=== PATIENT | female | born 1960 | race Caucasian/White ===

== ENCOUNTER → 2016-11-18 | Outpatient (CLI) | payer MEDICARE, MEDICAID ==
[~2016-11-18] MED LIST: ADVAIR 250/501 EA INH; AMLODIPINE BESY1 TAB PO; APAP/OXYCODONE1 TA2 PO; BENTYL10 MG PO; CYMBALTA60 MG PO; DAYPRO600 M1 PO; EPIPEN1 MG/ML MR; FLEXERIL10 MG PO; FLUVOXAMINE MA100 MG PO; FUROSEMIDE20 M1 PO; GABAPENTIN400 MG PO; HYDROCHLOROTHIA25 MG PO; IBUPROFEN800 MG PO; MEDROL DOSEPAK4 MG PO; MELOXICAM15 MG PO; MIRALAX POWDER17 G1 PO; MIRALAX POWDER255 G1 PO; MIXED AMPHETAMI25 MG PO; MS CONTIN30 MG PO; NEURONTIN300 MG PO; NORFLEX100 MG PO; NORVASC5 MG PO; NUCYNTA ER100 M1 PO; OXYCONTIN10 MG PO; PERCOCET 325 MG1 TA2 PO; PERCOCET 325 MG1 TA7 PO; PERCOCET PO; PREDNICOT20 MG PO; PROAIR HFA8.5 GM INH; REMERON15 MG PO; STRATTERA10 MG PO; TRAZADONE HYDR100 MG PO; ZOCOR20 MG PO; ZOFRAN ODT4 MG SL
[2016-11-18 14:46] LABS: BASO % 0.3 % (0.0-1.0); EOS # 0.1 10*3/uL (0.0-0.4); EOS % 0.9 % (1.0-4.0); HEMATOCRIT 37.5 % (37.0-47.0); HEMOGLOBIN 12.5 g/dl (12.0-16.0); IG # 0.1 10*3/uL (0.0-0.1); LYMPH % 17.1 % (27.0-41.0); MEAN CELL VOLUME 93.3 fl (81.0-99.0); MEAN CORPUSCULAR HGB 31.1 pg (27.0-31.0); MEAN CORPUSCULAR HGB CONC 33.3 g/dl (33.0-37.0); MEAN PLATELET VOLUME 9.5 fl (9.6-12.3); MONO # 0.8 10*3/uL (0.1-1.0); MONO % 6.7 % (3.0-9.0); NEUT # 8.8 10*3/uL (2.3-7.9); NEUT % 74.6 % (47.0-73.0); PLATELET COUNT AUTOMATED 272 10*3/uL (130-400); RED BLOOD COUNT 4.02 10*6/uL (4.10-5.10); RED CELL DISTRI WIDTH 14.5 % (0-14.5); WHITE BLOOD COUNT 11.8 10*3/uL (4.8-10.8)
[2016-11-18 14:49] LABS: BILIRUBIN NEGATIVE (NEGATIVE); BLOOD NEGATIVE (NEGATIVE); CLARITY CLEAR (CLEAR); COLOR YELLOW (YELLOW); GLUCOSE NEGATIVE (NEGATIVE); KETONE NEGATIVE (NEGATIVE); LEUKO ESTERASE NEGATIVE (NEGATIVE); NITRITE NEGATIVE (NEGATIVE); PROTEIN NEGATIVE (NEGATIVE); UROBILINOGEN 0.2 E.U./dl (0.2-1.0)
[2016-11-18 14:59] LABS: BILIRUBIN, DIRECT < 0.1 mg/dL (0.0-0.2); PHOSPHOROUS 3.2 mg/dL (2.5-4.9)
[2016-11-18 15:02] LABS: ALBUMIN 3.4 gm/dl (3.1-4.5); ALKALINE PHOSPHATASE 71 U/L (45-117); BILIRUBIN, TOTAL 0.3 mg/dl (0.2-1.0); BUN 9 mg/dl (7-24); CARBON DIOXIDE 30 mmol/L (21-32); CHLORIDE 110 mmol/L (98-107); EST GLOM FILT AFRICAN AMERICAN > 60 ml/min; GLUCOSE 102 mg/dL (65-99); POTASSIUM 3.8 mmol/L (3.5-5.1); SGOT/AST 13 IU/L (3-35); SGPT/ALT 29 U/L (12-78); SODIUM 146 mmol/L (136-145); TOTAL PROTEIN 6.6 gm/dL (6.4-8.2)
[2016-11-18 15:03] LABS: BACTERIA TRACE; URINE REFLEX COMMENT NO (NO)
[2016-11-18 15:13] LABS: FOLIC ACID 9.46 ng/mL (>5.38)
[2016-11-18 18:57] LABS: INTERNATIONAL NORM RATIO 0.9 (2.0-3.5); PROTHROMBIN TIME 9.4 SECONDS (9.0-12.4)
== END | disposition home or self-care (01) ==
LOC: LAB 14:02
PROVIDERS: Internal Medicine
DX: Z01.811 Encounter for preprocedural respiratory examination (principal); I10 Essential (primary) hypertension; A08.39 Other viral enteritis; G89.4 Chronic pain syndrome; D68.9 Coagulation defect, unspecified; M43.16 Spondylolisthesis, lumbar region

== ENCOUNTER → 2017-06-01 | Outpatient (CLI) | payer MEDICARE, MEDICAID ==
[2017-06-01 08:33] LABS: BASO % 0.3 % (0.0-1.0); EOS # 0.3 10*3/uL (0.0-0.4); EOS % 2.7 % (1.0-4.0); HEMOGLOBIN 12.7 g/dl (12.0-16.0); LYMPH # 3.1 10*3/uL (1.3-4.4); LYMPH % 28.6 % (27.0-41.0); MEAN CELL VOLUME 93.6 fl (81.0-99.0); MEAN CORPUSCULAR HGB 31.3 pg (27.0-31.0); MEAN CORPUSCULAR HGB CONC 33.4 g/dl (33.0-37.0); MEAN PLATELET VOLUME 10.4 fl (9.6-12.3); MONO % 9.5 % (3.0-9.0); NEUT # 6.4 10*3/uL (2.3-7.9); NEUT % 58.6 % (47.0-73.0); PLATELET COUNT AUTOMATED 180 10*3/uL (130-400); RED BLOOD COUNT 4.06 10*6/uL (4.10-5.10); RED CELL DISTRI WIDTH 14.2 % (0-14.5); WHITE BLOOD COUNT 10.9 10*3/uL (4.8-10.8)
[2017-06-01 08:59] LABS: ALBUMIN 3.8 gm/dl (3.1-4.5); ALKALINE PHOSPHATASE 83 U/L (45-117); BILIRUBIN, DIRECT < 0.1 mg/dL (0.0-0.2); BILIRUBIN, TOTAL 0.3 mg/dl (0.2-1.0); BUN 13 mg/dl (7-24); CARBON DIOXIDE 33 mmol/L (21-32); CHLORIDE 105 mmol/L (98-107); EST GLOM FILT AFRICAN AMERICAN > 60 ml/min; GLUCOSE 94 mg/dL (65-99); IRON 44 ug/dL (50-170); IRON SATURATION 14 %; MAGNESIUM 1.9 mg/dL (1.5-2.1); PHOSPHOROUS 3.7 mg/dL (2.5-4.9); POTASSIUM 3.6 mmol/L (3.5-5.1); SGOT/AST 22 IU/L (3-35); SGPT/ALT 19 U/L (12-78); SODIUM 142 mmol/L (136-145); TOTAL PROTEIN 7.6 gm/dL (6.4-8.2); UIBC 255 ug/dL (110-365)
[2017-06-01 09:45] LABS: FERRITIN 102.5 ng/mL (10.0-291.0); FOLIC ACID 22.86 ng/mL (>5.38)
== END | disposition home or self-care (01) ==
LOC: LAB 07:17
PROVIDERS: Internal Medicine
DX: J44.1 Chronic obstructive pulmonary disease with (acute) exacerbation (principal); I10 Essential (primary) hypertension; D68.9 Coagulation defect, unspecified

== ENCOUNTER → 2018-02-10 | Outpatient (CLI) | payer MEDICARE, MEDICAID ==
[2018-02-10 16:35] LABS: BASO # 0.1 10*3/uL (0.0-0.1); BASO % 0.5 % (0.0-1.0); EOS # 0.1 10*3/uL (0.0-0.4); EOS % 1.2 % (1.0-4.0); HEMATOCRIT 37.8 % (37.0-47.0); HEMOGLOBIN 12.6 g/dl (12.0-16.0); LYMPH # 2.8 10*3/uL (1.3-4.4); LYMPH % 28.5 % (27.0-41.0); MEAN CELL VOLUME 93.1 fl (81.0-99.0); MEAN CORPUSCULAR HGB CONC 33.3 g/dl (33.0-37.0); MEAN PLATELET VOLUME 10.1 fl (9.6-12.3); MONO # 0.7 10*3/uL (0.1-1.0); MONO % 6.9 % (3.0-9.0); NEUT # 6.1 10*3/uL (2.3-7.9); NEUT % 62.7 % (47.0-73.0); PLATELET COUNT AUTOMATED 188 10*3/uL (130-400); RED BLOOD COUNT 4.06 10*6/uL (4.10-5.10); RED CELL DISTRI WIDTH 14.4 % (0-14.5); WHITE BLOOD COUNT 9.8 10*3/uL (4.8-10.8)
[2018-02-10 16:49] LABS: ALBUMIN 3.9 gm/dl (3.1-4.5); BILIRUBIN, DIRECT 0.1 mg/dL (0.0-0.2); CREATININE 1.23 mg/dL (0.55-1.02); PHOSPHOROUS 3.6 mg/dL (2.5-4.9); POTASSIUM 3.3 mmol/L (3.5-5.1); TOTAL PROTEIN 7.3 gm/dL (6.4-8.2)
== END | disposition home or self-care (01) ==
LOC: LAB 16:14
PROVIDERS: Internal Medicine
DX: I10 Essential (primary) hypertension (principal); K59.00 Constipation, unspecified

== ENCOUNTER → 2018-03-08 | Outpatient (CLI) | payer MEDICARE, MEDICAID ==
[2018-03-08 16:54] LABS: ALBUMIN 4.1 gm/dl (3.1-4.5); BUN 13 mg/dl (7-24); CHLORIDE 103 mmol/L (98-107); CREATININE 0.91 mg/dL (0.55-1.02); PHOSPHOROUS 3.6 mg/dL (2.5-4.9); SODIUM 140 mmol/L (136-145)
== END | disposition home or self-care (01) ==
LOC: LAB 03:49
PROVIDERS: Internal Medicine
DX: N17.9 Acute kidney failure, unspecified (principal)

== ENCOUNTER → 2018-04-20 | Outpatient (CLI) | payer MEDICARE, MEDICAID ==
[~2018-04-20] MED LIST changes: +ADDERALL 30 MG30 MG PO; +BREO ELLIPTA 11 EACH INH; +CYCLOBENZAPRINE10 MG PO; +IBUPROFEN600 MG PO; +NUCYNTA ER50 M1 PO; +PERCOCET 7.5-31 EACH PO; +POTASSIUM CHLO20 ME4 PO
[2018-04-20 15:05] LABS: ALBUMIN 3.7 gm/dl (3.1-4.5); BUN 14 mg/dl (7-24); CHLORIDE 103 mmol/L (98-107); CREATININE 0.81 mg/dL (0.55-1.02); POTASSIUM 3.6 mmol/L (3.5-5.1); SODIUM 142 mmol/L (136-145)
[2018-04-20 15:06] LABS: PHOSPHOROUS 3.2 mg/dL (2.5-4.9)
== END | disposition home or self-care (01) ==
LOC: LAB 14:23
PROVIDERS: Internal Medicine
DX: E87.6 Hypokalemia (principal)

== ENCOUNTER → 2018-05-13 | Day surgery (SDC) | payer MEDICARE, MEDICAID ==
[~2018-05-13] VITALS: Ht 152.4 cm; Wt 58.5 kg
--- NOTE | ~2018-05-13 | O ---
[place], [place] OPERATIVE NOTE NAME: LONNY BECKETT UNIT #: [id number] ROOM: DOCTOR: MAXI AGUIRRE MD BIRTHDATE: [birth year] DOS: 05/13/2018 HISTORY OF PRESENT ILLNESS: This is a 57-year-old patient who has presented with chief complaint of history of colonic polyp and grandmother with colonic carcinoma is very concerned. ALLERGIES: SULFA. FAMILY HISTORY: Lisinopril. PAST SURGICAL HISTORY: Lower back rotator cuff. PAST MEDICAL HISTORY: Chronic back pain, hypertension, ADHD, COPD, UTI histories. SOCIAL HISTORY: Smoker. Social alcohol consumer. PROCEDURE: Today's procedure part of investigation is colonoscopy. PREMEDICATION: Propofol. SCOPE: Olympus forwarding colonoscope 10L video. REPORT: After putting the patient in left lateral position and application of lubricant to the scope, the scope was introduced. Thereafter, under direct visualization, advanced through the length of colon without difficulty. Evidence of diverticulosis was identified. Sessile polypoid lesion in sigmoid colon with piecemeal polypectomy removed. Base of the cecum explored, appendiceal orifice identified, ileocecal valve was defined. No acute pathology seen. The patient extubated, tolerated procedure well. IMPRESSION: Sessile colonic polyp, diverticulosis. This patient was advised to have high fiber diet. He does not have any concern at this point regarding carcinoma. His followup between 5-7 years would be adequate for colonoscopy. Thank you very much indeed for your kind referral. [place], [place] OPERATIVE NOTE NAME: LONNY BECKETT UNIT #: [id number] ROOM: DOCTOR: MAXI AGUIRRE MD BIRTHDATE: [birth year] MAXI AGUIRRE MD CM:OPRECORD:OPERATIVE NOTE [id number] MAXI AGUIRRE MD 05/13/18 1435 interface
[2018-05-13 12:00] VITALS: BP 126/70
[2018-05-13 13:57] VITALS: BP 127/59
[2018-05-13 14:13] VITALS: BP 128/63
[2018-05-13 14:21] VITALS: BP 145/77
== END | disposition home or self-care (01) ==
LOC: SDC 05-09 14:00
DX: Z12.11 Encounter for screening for malignant neoplasm of colon (principal); K63.5 Polyp of colon; K57.30 Diverticulosis of large intestine without perforation or abscess without bleeding; Z80.0 Family history of malignant neoplasm of digestive organs; Z86.010 Personal history of colon polyps; I10 Essential (primary) hypertension; J44.9 Chronic obstructive pulmonary disease, unspecified; M79.7 Fibromyalgia; F17.210 Nicotine dependence, cigarettes, uncomplicated; F41.9 Anxiety disorder, unspecified; F32.9 Major depressive disorder, single episode, unspecified; Z79.899 Other long term (current) drug therapy; Z79.82 Long term (current) use of aspirin; Z88.2 Allergy status to sulfonamides; Z98.890 Other specified postprocedural states; Z90.710 Acquired absence of both cervix and uterus; Z98.51 Tubal ligation status

== ENCOUNTER 2018-05-22 14:46 | Emergency (ER) | payer MEDICARE, MEDICAID ==
[~2018-05-22] VITALS: Ht 165.1 cm; Wt 58.5 kg
[~2018-05-22 14:46] MED LIST changes: -IBUPROFEN600 MG PO
[2018-05-22 15:04] LABS: BILIRUBIN NEGATIVE (NEGATIVE); BLOOD NEGATIVE (NEGATIVE); CLARITY CLEAR (CLEAR); COLOR YELLOW (YELLOW); GLUCOSE NEGATIVE (NEGATIVE); KETONE NEGATIVE (NEGATIVE); LEUKO ESTERASE NEGATIVE (NEGATIVE); NITRITE NEGATIVE (NEGATIVE); PH 6.5 (5.0-9.0); SPECIFIC GRAVITY <= 1.005 (1.005-1.030); UROBILINOGEN 0.2 E.U./dl (0.2-1.0)
[2018-05-22 15:12] LABS: RBC 0-2 rbc/hpf (0-2); WBC 0-2 wbc/hpf (0-5)
[2018-05-22 15:30] LABS: BASO % 0.2 % (0.0-1.0); EOS # 0.1 10*3/uL (0.0-0.4); EOS % 0.6 % (1.0-4.0); HEMATOCRIT 36.8 % (37.0-47.0); HEMOGLOBIN 12.1 g/dl (12.0-16.0); LYMPH # 2.2 10*3/uL (1.3-4.4); LYMPH % 25.3 % (27.0-41.0); MEAN CELL VOLUME 94.8 fl (81.0-99.0); MEAN CORPUSCULAR HGB 31.2 pg (27.0-31.0); MEAN CORPUSCULAR HGB CONC 32.9 g/dl (33.0-37.0); MEAN PLATELET VOLUME 9.7 fl (9.6-12.3); MONO # 0.4 10*3/uL (0.1-1.0); MONO % 4.5 % (3.0-9.0); NEUT # 6.1 10*3/uL (2.3-7.9); NEUT % 69.2 % (47.0-73.0); PLATELET COUNT AUTOMATED 210 10*3/uL (130-400); RED BLOOD COUNT 3.88 10*6/uL (4.10-5.10); RED CELL DISTRI WIDTH 14.1 % (0-14.5); WHITE BLOOD COUNT 8.7 10*3/uL (4.8-10.8)
[2018-05-22 15:46] LABS: ALBUMIN 3.8 gm/dl (3.1-4.5); ALKALINE PHOSPHATASE 85 U/L (45-117); BUN 10 mg/dl (7-24); CHLORIDE 107 mmol/L (98-107); CREATININE 0.84 mg/dL (0.55-1.02); LIPASE 111 U/L (73-393); POTASSIUM 4.1 mmol/L (3.5-5.1); SGOT/AST 15 IU/L (3-35); SGPT/ALT 21 U/L (12-78); SODIUM 143 mmol/L (136-145); TOTAL PROTEIN 7.2 gm/dL (6.4-8.2)
[2018-05-22 17:12] VITALS: BP 159/74
[2018-05-22] MEDS ORDERED: IBUPROFEN600 MG PO (17:49)
== END 2018-05-22 17:53 | disposition home or self-care (01) ==
LOC: ED 14:46
PROVIDERS: Physician Assistant
DX: R10.31 Right lower quadrant pain (principal); R30.0 Dysuria; R31.9 Hematuria, unspecified; R35.0 Frequency of micturition; Z88.8 Allergy status to other drugs, medicaments and biological substances; Z88.2 Allergy status to sulfonamides; Z79.899 Other long term (current) drug therapy; Z98.890 Other specified postprocedural states; Z90.49 Acquired absence of other specified parts of digestive tract

== ENCOUNTER → 2018-12-22 | Outpatient (CLI) | payer OTHER, MEDICAID ==
[~2018-12-22] MED LIST changes: +IBUPROFEN600 MG PO
== END | disposition home or self-care (01) ==
LOC: RAD 12:46
DX: J44.9 Chronic obstructive pulmonary disease, unspecified (principal); F17.200 Nicotine dependence, unspecified, uncomplicated

== ENCOUNTER → 2019-03-29 | Outpatient (CLI) | payer OTHER, MEDICAID ==
[2019-03-29 13:09] LABS: BASO % 0.2 % (0.0-1.0); EOS # 0.3 10*3/uL (0.0-0.4); EOS % 2.9 % (1.0-4.0); HEMATOCRIT 38.1 % (37.0-47.0); HEMOGLOBIN 12.2 g/dl (12.0-16.0); LYMPH # 2.9 10*3/uL (1.3-4.4); LYMPH % 31.1 % (27.0-41.0); MEAN CELL VOLUME 96.2 fl (81.0-99.0); MEAN CORPUSCULAR HGB 30.8 pg (27.0-31.0); MEAN PLATELET VOLUME 10.3 fl (9.6-12.3); MONO # 0.8 10*3/uL (0.1-1.0); MONO % 8.8 % (3.0-9.0); NEUT # 5.3 10*3/uL (2.3-7.9); NEUT % 56.8 % (47.0-73.0); PLATELET COUNT AUTOMATED 248 10*3/uL (130-400); RED BLOOD COUNT 3.96 10*6/uL (4.10-5.10); RED CELL DISTRI WIDTH 15.5 % (0-14.5); WHITE BLOOD COUNT 9.3 10*3/uL (4.8-10.8)
[2019-03-29 13:19] LABS: ALBUMIN 3.9 gm/dl (3.1-4.5); ALKALINE PHOSPHATASE 82 U/L (45-117); BILIRUBIN, DIRECT < 0.1 mg/dL (0.0-0.2); BUN 10 mg/dl (7-24); CHLORIDE 103 mmol/L (98-107); CREATININE 1.14 mg/dL (0.55-1.02); POTASSIUM 4.2 mmol/L (3.5-5.1); SGOT/AST 22 IU/L (3-35); SGPT/ALT 22 U/L (12-78); SODIUM 140 mmol/L (136-145); TOTAL PROTEIN 7.3 gm/dL (6.4-8.2)
== END | disposition home or self-care (01) ==
LOC: LAB 12:15
PROVIDERS: Internal Medicine
DX: R53.83 Other fatigue (principal)

== ENCOUNTER → 2019-10-26 | Outpatient (CLI) | payer OTHER, MEDICAID | END | disposition home or self-care (01) | LOC: RAD 14:59 | DX: M50.31 Other cervical disc degeneration, high cervical region (principal); M48.02 Spinal stenosis, cervical region; M47.812 Spondylosis without myelopathy or radiculopathy, cervical region ==

== ENCOUNTER → 2019-11-03 | Outpatient (CLI) | payer OTHER, MEDICAID | END | disposition home or self-care (01) | LOC: MRI 00:31 | DX: M47.812 Spondylosis without myelopathy or radiculopathy, cervical region (principal) ==

== ENCOUNTER → 2019-12-01 | Outpatient (CLI) | payer OTHER, MEDICAID | END | disposition home or self-care (01) | LOC: RAD 11-29 16:55 | DX: M47.814 Spondylosis without myelopathy or radiculopathy, thoracic region (principal); M47.812 Spondylosis without myelopathy or radiculopathy, cervical region; M48.061 Spinal stenosis, lumbar region without neurogenic claudication ==

== ENCOUNTER → 2020-01-16 | Outpatient (CLI) | payer OTHER, MEDICAID ==
[2020-01-16 15:36] LABS: BASO % 0.3 % (0.0-1.0); EOS # 0.3 10*3/uL (0.0-0.4); HEMATOCRIT 38.1 % (37.0-47.0); HEMOGLOBIN 12.2 g/dl (12.0-16.0); LYMPH # 3.4 10*3/uL (1.3-4.4); LYMPH % 37.9 % (27.0-41.0); MEAN CELL VOLUME 97.2 fl (81.0-99.0); MEAN CORPUSCULAR HGB 31.1 pg (27.0-31.0); MEAN PLATELET VOLUME 10.2 fl (9.6-12.3); MONO # 0.8 10*3/uL (0.1-1.0); MONO % 8.6 % (3.0-9.0); NEUT # 4.5 10*3/uL (2.3-7.9); PLATELET COUNT AUTOMATED 232 10*3/uL (130-400); RED BLOOD COUNT 3.92 10*6/uL (4.10-5.10); RED CELL DISTRI WIDTH 15.4 % (0-14.5)
[2020-01-16 15:39] LABS: BILIRUBIN NEGATIVE (NEGATIVE); BLOOD NEGATIVE (NEGATIVE); CLARITY CLEAR (CLEAR); COLOR YELLOW (YELLOW); GLUCOSE NEGATIVE (NEGATIVE); KETONE NEGATIVE (NEGATIVE); SPECIFIC GRAVITY 1.005 (1.005-1.030)
[2020-01-16 15:40] LABS: LEUKO ESTERASE NEGATIVE (NEGATIVE); NITRITE NEGATIVE (NEGATIVE); UROBILINOGEN 0.2 E.U./dl (0.2-1.0)
[2020-01-16 15:44] LABS: RBC 0-2 rbc/hpf (0-2); WBC 0-2 wbc/hpf (0-5)
[2020-01-16 15:45] LABS: BACTERIA TRACE
[2020-01-16 15:47] LABS: BUN 13 mg/dl (7-24); CHLORIDE 105 mmol/L (98-107); CREATININE 0.99 mg/dL (0.55-1.02); PHOSPHOROUS 3.7 mg/dL (2.5-4.9); POTASSIUM 4.1 mmol/L (3.5-5.1); SODIUM 140 mmol/L (136-145)
== END | disposition home or self-care (01) ==
LOC: LAB 15:00
PROVIDERS: Internal Medicine
DX: M54.5 Low back pain (principal)

== ENCOUNTER → 2020-04-25 | Outpatient (CLI) | payer OTHER, MEDICAID ==
[2020-04-25 12:23] LABS: BASO % 0.5 % (0.0-1.0); EOS # 0.2 10*3/uL (0.0-0.4); EOS % 1.9 % (1.0-4.0); HEMATOCRIT 38.9 % (37.0-47.0); LYMPH # 2.3 10*3/uL (1.3-4.4); MEAN CELL VOLUME 98.7 fl (81.0-99.0); MEAN CORPUSCULAR HGB 32.2 pg (27.0-31.0); MEAN CORPUSCULAR HGB CONC 32.6 g/dl (33.0-37.0); MEAN PLATELET VOLUME 10.2 fl (9.6-12.3); MONO # 0.8 10*3/uL (0.1-1.0); MONO % 8.9 % (3.0-9.0); NEUT # 5.2 10*3/uL (2.3-7.9); NEUT % 61.3 % (47.0-73.0); PLATELET COUNT AUTOMATED 252 10*3/uL (130-400); RED BLOOD COUNT 3.94 10*6/uL (4.10-5.10); RED CELL DISTRI WIDTH 14.6 % (0-14.5); WHITE BLOOD COUNT 8.4 10*3/uL (4.8-10.8)
[2020-04-25 12:36] LABS: CLARITY SL CLOUDY (CLEAR); COLOR YELLOW (YELLOW); GLUCOSE NEGATIVE (NEGATIVE)
[2020-04-25 12:37] LABS: BACTERIA 2+; BILIRUBIN NEGATIVE (NEGATIVE); BLOOD NEGATIVE (NEGATIVE); KETONE NEGATIVE (NEGATIVE); LEUKO ESTERASE NEGATIVE (NEGATIVE); MUCOUS 1+; NITRITE NEGATIVE (NEGATIVE); SPECIFIC GRAVITY 1.005 (1.005-1.030); UROBILINOGEN 0.2 E.U./dl (0.2-1.0)
[2020-04-25 12:57] LABS: ALBUMIN 3.9 gm/dl (3.1-4.5); ALKALINE PHOSPHATASE 96 U/L (45-117); BUN 11 mg/dl (7-24); CHLORIDE 104 mmol/L (98-107); POTASSIUM 4.2 mmol/L (3.5-5.1); SGOT/AST 22 IU/L (3-35); SGPT/ALT 28 U/L (12-78); SODIUM 139 mmol/L (136-145); TOTAL PROTEIN 7.6 gm/dL (6.4-8.2)
[2020-04-25 13:05] LABS: ACT PARTIAL THROMBO TIME 25.3 SECONDS (20.0-32.1)
== END | disposition home or self-care (01) ==
LOC: LAB 11:23
PROVIDERS: Physician Assistant
DX: I51.7 Cardiomegaly (principal); M48.02 Spinal stenosis, cervical region; M79.604 Pain in right leg; M79.605 Pain in left leg

== ENCOUNTER → 2020-06-17 | Outpatient (CLI) | payer OTHER, MEDICAID | END | disposition home or self-care (01) | LOC: RAD 00:38 | DX: M47.812 Spondylosis without myelopathy or radiculopathy, cervical region (principal); M47.813 Spondylosis without myelopathy or radiculopathy, cervicothoracic region; M48.03 Spinal stenosis, cervicothoracic region; M25.78 Osteophyte, vertebrae; M48.02 Spinal stenosis, cervical region ==

== ENCOUNTER → 2020-07-17 | Outpatient (CLI) | payer OTHER, MEDICAID | END | disposition home or self-care (01) | LOC: US 07-12 15:00 | PROVIDERS: ATTEND Nurse Practitioner Women's Health | DX: M79.89 Other specified soft tissue disorders (principal); Z90.710 Acquired absence of both cervix and uterus ==

== ENCOUNTER → 2020-07-26 | Outpatient (CLI) | payer OTHER, MEDICAID | END | disposition home or self-care (01) | LOC: RAD 00:52 | PROVIDERS: ATTEND Physician Assistant | DX: M47.812 Spondylosis without myelopathy or radiculopathy, cervical region (principal); M48.02 Spinal stenosis, cervical region ==

== ENCOUNTER → 2020-09-10 | Outpatient (CLI) | payer OTHER, MEDICAID | END | disposition home or self-care (01) | LOC: RAD 00:32 | PROVIDERS: ATTEND Physician Assistant Medical | DX: M43.12 Spondylolisthesis, cervical region (principal); M47.812 Spondylosis without myelopathy or radiculopathy, cervical region; M47.813 Spondylosis without myelopathy or radiculopathy, cervicothoracic region; M81.0 Age-related osteoporosis without current pathological fracture; M25.78 Osteophyte, vertebrae; Z98.890 Other specified postprocedural states ==

== ENCOUNTER 2020-12-10 15:57 | Emergency (ER) | payer OTHER, MEDICAID ==
[~2020-12-10] VITALS: Ht 157.4 cm; Wt 59.0 kg
[2020-12-10 16:01] VITALS: BP 123/72
[2020-12-10 16:30] LABS: BASO % 0.2 % (0.0-1.0); EOS # 0.2 10*3/uL (0.0-0.4); EOS % 1.3 % (1.0-4.0); HEMATOCRIT 39.8 % (37.0-47.0); LYMPH # 2.8 10*3/uL (1.3-4.4); MEAN CELL VOLUME 96.4 fl (81.0-99.0); MEAN CORPUSCULAR HGB 30.8 pg (27.0-31.0); MEAN CORPUSCULAR HGB CONC 31.9 g/dl (33.0-37.0); MEAN PLATELET VOLUME 9.5 fl (9.6-12.3); MONO # 1.2 10*3/uL (0.1-1.0); MONO % 7.3 % (3.0-9.0); NEUT # 11.5 10*3/uL (2.3-7.9); NEUT % 72.6 % (47.0-73.0); PLATELET COUNT AUTOMATED 288 10*3/uL (130-400); RED BLOOD COUNT 4.13 10*6/uL (4.10-5.10); RED CELL DISTRI WIDTH 14.6 % (0-14.5); WHITE BLOOD COUNT 15.8 10*3/uL (4.8-10.8)
[2020-12-10 16:32] LABS: BILIRUBIN Negative (Negative); BLOOD Negative (Negative); CLARITY Clear (Clear); COLOR Yellow (Yellow); GLUCOSE Negative (Negative); KETONE Trace (Negative); LEUKO ESTERASE Trace (Negative); NITRITE Negative (Negative); PH 5.5 (4.5-8.0); UROBILINOGEN 0.2 E.U./dl (0.0-1.0)
[2020-12-10 16:41] LABS: ACT PARTIAL THROMBO TIME 23.5 SECONDS (20.0-32.1); INTERNATIONAL NORM RATIO 0.9 (2.0-3.5)
[2020-12-10 16:48] LABS: ALBUMIN 3.6 gm/dl (3.1-4.5); ALKALINE PHOSPHATASE 108 U/L (45-117); BUN 10 mg/dl (7-24); CHLORIDE 106 mmol/L (98-107); CREATININE 1.02 mg/dL (0.55-1.02); SGOT/AST 18 IU/L (3-35); SGPT/ALT 25 U/L (12-78); SODIUM 139 mmol/L (136-145); TOTAL PROTEIN 7.6 gm/dL (6.4-8.2)
[2020-12-10 16:48] LABS: BACTERIA 1+
[2020-12-10 16:50] LABS: TROPONIN I < 0.015 ng/ml (<0.045)
[2020-12-10] MEDS ORDERED: CIPRO500 MG PO (17:11)
[2020-12-11] MEDS ORDERED: CEFUROXIME AXE500 MG PO (14:41)
== END 2020-12-10 18:20 | disposition home or self-care (01) ==
LOC: ED 15:57
PROVIDERS: Family Medicine
DX: N39.0 Urinary tract infection, site not specified (principal); Z20.828 Contact with and (suspected) exposure to other viral communicable diseases; R79.1 Abnormal coagulation profile; Z88.8 Allergy status to other drugs, medicaments and biological substances; Z88.2 Allergy status to sulfonamides; Z79.899 Other long term (current) drug therapy

== ENCOUNTER → 2020-12-13 | Outpatient (CLI) | payer OTHER, MEDICAID ==
[~2020-12-13] MED LIST changes: +CEFUROXIME AXE500 MG PO; +CIPRO500 MG PO
== END | disposition home or self-care (01) ==
LOC: MRI 12-02 00:21
PROVIDERS: ATTEND Neurological Surgery
DX: G54.9 Nerve root and plexus disorder, unspecified (principal)

== ENCOUNTER → 2021-03-28 | Outpatient (CLI) | payer OTHER, MEDICAID | END | disposition home or self-care (01) | LOC: MRI 00:17 | PROVIDERS: ATTEND Neurological Surgery | DX: M47.817 Spondylosis without myelopathy or radiculopathy, lumbosacral region (principal); M48.07 Spinal stenosis, lumbosacral region; M51.9 Unspecified thoracic, thoracolumbar and lumbosacral intervertebral disc disorder; R29.898 Other symptoms and signs involving the musculoskeletal system ==

== ENCOUNTER → 2021-06-12 | Outpatient (CLI) | payer OTHER, MEDICAID ==
[2021-06-12 10:47] LABS: BILIRUBIN Negative (Negative); BLOOD Negative (Negative); CLARITY Clear (Clear); COLOR Yellow (Yellow); GLUCOSE Negative (Negative); KETONE Negative (Negative); LEUKO ESTERASE Trace (Negative); NITRITE Negative (Negative)
[2021-06-12 11:11] LABS: EPITHELIAL CELLS 0-2
== END | disposition home or self-care (01) ==
LOC: US 06-09 12:19
PROVIDERS: ATTEND Internal Medicine
DX: K83.8 Other specified diseases of biliary tract (principal); N39.0 Urinary tract infection, site not specified; Z90.49 Acquired absence of other specified parts of digestive tract

== ENCOUNTER → 2021-08-18 | Outpatient (CLI) | payer OTHER, MEDICAID | END | disposition home or self-care (01) | LOC: RAD 08-15 00:35 | PROVIDERS: ATTEND Physician Assistant | DX: M51.16 Intervertebral disc disorders with radiculopathy, lumbar region (principal); M50.30 Other cervical disc degeneration, unspecified cervical region ==

== ENCOUNTER → 2021-08-19 | Outpatient (CLI) | payer OTHER, MEDICAID | END | disposition home or self-care (01) | LOC: LAB 15:04 | PROVIDERS: ATTEND Physician Assistant | DX: M41.86 Other forms of scoliosis, lumbar region (principal); M54.16 Radiculopathy, lumbar region; Z98.1 Arthrodesis status ==

== ENCOUNTER → 2021-08-25 | Outpatient (CLI) | payer OTHER, MEDICAID | END | disposition home or self-care (01) | LOC: MAMMO 00:31 | PROVIDERS: ATTEND Internal Medicine | DX: Z12.31 Encounter for screening mammogram for malignant neoplasm of breast (principal) ==

== ENCOUNTER → 2021-09-01 | Outpatient (CLI) | payer OTHER, MEDICAID | END | disposition home or self-care (01) | LOC: COVID19 17:10 | PROVIDERS: ATTEND Internal Medicine | DX: Z11.52 Encounter for screening for COVID-19 (principal) ==

== ENCOUNTER → 2021-10-30 | Outpatient (CLI) | payer OTHER, MEDICAID | END | disposition home or self-care (01) | LOC: COVID19 14:59 | PROVIDERS: ATTEND Internal Medicine | DX: Z11.52 Encounter for screening for COVID-19 (principal) ==

== ENCOUNTER → 2022-01-15 | Outpatient (CLI) | payer OTHER, MEDICAID ==
[2022-01-15 14:35] LABS: BILIRUBIN Negative (Negative); BLOOD Negative (Negative); CLARITY Clear (Clear); COLOR Yellow (Yellow); GLUCOSE Negative (Negative); KETONE Negative (Negative); LEUKO ESTERASE Negative (Negative); NITRITE Negative (Negative); UROBILINOGEN 0.2 E.U./dl (0.0-1.0)
[2022-01-15 14:43] LABS: BACTERIA 1+; WBC 0-2 wbc/hpf (0-5)
== END | disposition home or self-care (01) ==
LOC: LAB 00:27
PROVIDERS: ATTEND Internal Medicine
DX: N39.0 Urinary tract infection, site not specified (principal)

== ENCOUNTER → 2022-02-09 | Outpatient (CLI) | payer OTHER, MEDICAID | END | disposition home or self-care (01) | LOC: CT 00:32 | PROVIDERS: ATTEND Physician Assistant | DX: M51.36 Other intervertebral disc degeneration, lumbar region (principal); M43.16 Spondylolisthesis, lumbar region; M48.062 Spinal stenosis, lumbar region with neurogenic claudication ==

== ENCOUNTER → 2022-02-13 | Outpatient (CLI) | payer OTHER, MEDICAID ==
[2022-02-13 14:46] LABS: BUN 12 mg/dl (7-24)
== END | disposition home or self-care (01) ==
LOC: LAB 13:59
PROVIDERS: ATTEND Physician Assistant
DX: M43.16 Spondylolisthesis, lumbar region (principal); M51.36 Other intervertebral disc degeneration, lumbar region; M48.062 Spinal stenosis, lumbar region with neurogenic claudication; F17.200 Nicotine dependence, unspecified, uncomplicated

== ENCOUNTER 2022-07-05 15:31 | Emergency (ER) | payer OTHER, MEDICAID ==
[~2022-07-05] VITALS: Ht 160 cm; Wt 70.3 kg
[2022-07-05 16:21] LABS: BASO % 0.4 % (0.0-1.0); EOS # 0.2 10*3/uL (0.0-0.4); EOS % 1.6 % (1.0-4.0); HEMATOCRIT 38.6 % (37.0-47.0); LYMPH # 2.3 10*3/uL (1.3-4.4); LYMPH % 23.8 % (27.0-41.0); MEAN CELL VOLUME 93.9 fl (81.0-99.0); MEAN CORPUSCULAR HGB 31.6 pg (27.0-31.0); MEAN CORPUSCULAR HGB CONC 33.7 g/dl (33.0-37.0); MEAN PLATELET VOLUME 9.7 fl (9.6-12.3); MONO # 0.7 10*3/uL (0.1-1.0); MONO % 7.2 % (3.0-9.0); NEUT # 6.4 10*3/uL (2.3-7.9); NEUT % 66.7 % (47.0-73.0); PLATELET COUNT AUTOMATED 255 10*3/uL (130-400); RED BLOOD COUNT 4.11 10*6/uL (4.10-5.10); RED CELL DISTRI WIDTH 15.4 % (0-14.5); WHITE BLOOD COUNT 9.6 10*3/uL (4.8-10.8)
[2022-07-05 16:36] LABS: ALKALINE PHOSPHATASE 96 U/L (45-117); BUN 10 mg/dl (7-24); CHLORIDE 108 mmol/L (98-107); CREATININE 0.85 mg/dL (0.55-1.02); POTASSIUM 3.9 mmol/L (3.5-5.1); SGOT/AST 23 IU/L (3-35); SGPT/ALT 24 U/L (12-78); SODIUM 142 mmol/L (136-145); TOTAL PROTEIN 7.3 gm/dL (6.4-8.2)
[2022-07-05 18:24] LABS: BILIRUBIN Negative (Negative); BLOOD Negative (Negative); COLOR Yellow (Yellow); GLUCOSE Negative (Negative); KETONE Negative (Negative); LEUKO ESTERASE Negative (Negative); NITRITE Negative (Negative); UROBILINOGEN 0.2 E.U./dl (0.0-1.0)
[2022-07-05 18:29] LABS: CLARITY Clear (Clear)
[2022-07-05 18:33] LABS: HYALINE CAST 0-2; WBC 0-2 wbc/hpf (0-5)
[2022-07-05 19:43] VITALS: BP 182/88
== END 2022-07-05 23:46 | disposition left against medical advice (07) ==
LOC: ED 15:31
PROVIDERS: Nurse Practitioner Family
DX: M54.50 Low back pain, unspecified (principal); R10.9 Unspecified abdominal pain; R39.15 Urgency of urination; I10 Essential (primary) hypertension; J44.9 Chronic obstructive pulmonary disease, unspecified; Z88.2 Allergy status to sulfonamides; Z88.8 Allergy status to other drugs, medicaments and biological substances; Z79.899 Other long term (current) drug therapy; Z90.49 Acquired absence of other specified parts of digestive tract; Z98.890 Other specified postprocedural states; Z98.51 Tubal ligation status

== ENCOUNTER → 2022-09-11 | Outpatient (CLI) | payer OTHER, MEDICAID ==
[2022-09-11 15:49] LABS: BILIRUBIN Negative (Negative); BLOOD Negative (Negative); CLARITY Clear (Clear); COLOR Yellow (Yellow); GLUCOSE Negative (Negative); KETONE Trace (Negative); LEUKO ESTERASE Trace (Negative); NITRITE Negative (Negative); PH 5.5 (4.5-8.0); SPECIFIC GRAVITY 1.025 (1.001-1.030)
[2022-09-11 16:20] LABS: BACTERIA 1+; RBC 0-2 rbc/hpf (0-2)
== END | disposition home or self-care (01) ==
LOC: LAB 15:03
PROVIDERS: Physician Assistant; ATTEND Internal Medicine
DX: N30.01 Acute cystitis with hematuria (principal)

== ENCOUNTER → 2022-11-20 | Outpatient (CLI) | payer OTHER, MEDICAID ==
[2022-11-20 13:44] LABS: BILIRUBIN Negative (Negative); BLOOD 1+ (Negative); CLARITY Turbid (Clear); COLOR Yellow (Yellow); GLUCOSE Negative (Negative); KETONE Negative (Negative); LEUKO ESTERASE 3+ (Negative); NITRITE Negative (Negative); SPECIFIC GRAVITY 1.015 (1.001-1.030); UROBILINOGEN 0.2 E.U./dl (0.0-1.0)
[2022-11-20 13:55] LABS: BACTERIA 4+; WBC TNTC wbc/hpf (0-5)
== END | disposition home or self-care (01) ==
LOC: LAB 13:02
PROVIDERS: ATTEND Internal Medicine
DX: R30.0 Dysuria (principal)

== ENCOUNTER → 2023-04-28 | Outpatient (CLI) | payer OTHER, MEDICAID ==
[2023-04-28 10:34] LABS: BILIRUBIN Negative (Negative); BLOOD 2+ (Negative); CLARITY Turbid (Clear); COLOR Yellow (Yellow); GLUCOSE Negative (Negative); KETONE Negative (Negative); LEUKO ESTERASE 3+ (Negative); NITRITE Negative (Negative); UROBILINOGEN 0.2 E.U./dl (0.0-1.0)
[2023-04-28 11:02] LABS: BACTERIA 4+; RBC 21-30 rbc/hpf (0-2); WBC TNTC wbc/hpf (0-5)
== END | disposition home or self-care (01) ==
LOC: LAB 00:33
PROVIDERS: ATTEND Internal Medicine
DX: N39.0 Urinary tract infection, site not specified (principal)

== ENCOUNTER → 2023-05-21 | Outpatient (CLI) | payer MEDICARE, MEDICAID ==
[~2023-05-21] MED LIST changes: +XARE15TA PO; +XARE20MG PO; +XARELTO15 M1 PO; +XARELTO20 M1 PO
[2023-05-21 11:46] LABS: BASO % 0.5 % (0.0-1.0); BILIRUBIN Negative (Negative); BLOOD Negative (Negative); CLARITY Clear (Clear); COLOR Yellow (Yellow); EOS # 0.3 10*3/uL (0.0-0.4); EOS % 4.1 % (1.0-4.0); GLUCOSE Negative (Negative); HEMATOCRIT 39.3 % (37.0-47.0); KETONE Negative (Negative); LEUKO ESTERASE Negative (Negative); LYMPH # 2.3 10*3/uL (1.3-4.4); LYMPH % 36.5 % (27.0-41.0); MEAN CELL VOLUME 95.2 fl (81.0-99.0); MEAN CORPUSCULAR HGB 31.5 pg (27.0-31.0); MEAN CORPUSCULAR HGB CONC 33.1 g/dl (33.0-37.0); MEAN PLATELET VOLUME 9.7 fl (9.6-12.3); MONO # 0.5 10*3/uL (0.1-1.0); MONO % 7.7 % (3.0-9.0); NEUT # 3.3 10*3/uL (2.3-7.9); NITRITE Negative (Negative); PLATELET COUNT AUTOMATED 268 10*3/uL (130-400); RED BLOOD COUNT 4.13 10*6/uL (4.10-5.10); RED CELL DISTRI WIDTH 15.8 % (0-14.5); UROBILINOGEN 0.2 E.U./dl (0.0-1.0); WHITE BLOOD COUNT 6.4 10*3/uL (4.8-10.8)
[2023-05-21 11:53] LABS: BACTERIA 1+
[2023-05-21 12:01] LABS: ACT PARTIAL THROMBO TIME 23.9 SECONDS (20.0-32.1)
[2023-05-21 12:36] LABS: ALKALINE PHOSPHATASE 94 U/L (46-116); BUN 10 mg/dl (9-23); CHLORIDE 105 mmol/L (98-107); SGPT/ALT 12 U/L (10-49); TOTAL PROTEIN 6.8 gm/dL (6.0-8.0)
== END | disposition home or self-care (01) ==
LOC: LAB 00:22
PROVIDERS: ATTEND Neurological Surgery
DX: N39.0 Urinary tract infection, site not specified (principal); R79.1 Abnormal coagulation profile

== ENCOUNTER 2023-05-25 18:10 | Emergency (ER) | payer MEDICARE, MEDICAID ==
[~2023-05-25] VITALS: Ht 160 cm; Wt 68.0 kg
[~2023-05-25 18:10] MED LIST changes: -XARE15TA PO; -XARE20MG PO; -XARELTO15 M1 PO; -XARELTO20 M1 PO
[2023-05-25 18:24] VITALS: BP 148/70
[2023-05-25] MEDS ORDERED: XARE20MG PO (18:55)
[2023-05-25] MEDS ORDERED: XARE15TA PO (18:55)
[2023-05-26] MEDS ORDERED: XARELTO20 M1 PO (10:10)
[2023-05-26] MEDS ORDERED: XARELTO15 M1 PO (10:10)
== END 2023-05-25 18:55 | disposition home or self-care (01) ==
LOC: ED 18:10
DX: I82.402 Acute embolism and thrombosis of unspecified deep veins of left lower extremity (principal); I10 Essential (primary) hypertension; F32.A Depression, unspecified; F41.9 Anxiety disorder, unspecified; J44.9 Chronic obstructive pulmonary disease, unspecified; M79.7 Fibromyalgia; Z88.2 Allergy status to sulfonamides; Z88.8 Allergy status to other drugs, medicaments and biological substances; Z90.710 Acquired absence of both cervix and uterus; Z98.51 Tubal ligation status; Z98.890 Other specified postprocedural states

== ENCOUNTER → 2023-05-25 | Outpatient (CLI) | payer MEDICARE, MEDICAID | END | disposition home or self-care (01) | LOC: US 00:21 | PROVIDERS: ATTEND Neurological Surgery | DX: I82.492 Acute embolism and thrombosis of other specified deep vein of left lower extremity (principal); M79.661 Pain in right lower leg ==

== ENCOUNTER → 2023-07-08 | Outpatient (CLI) | payer MEDICARE, MEDICAID ==
[~2023-07-08] MED LIST changes: +XARE15TA PO; +XARE20MG PO; +XARELTO15 M1 PO; +XARELTO20 M1 PO
== END | disposition home or self-care (01) ==
LOC: LAB 15:28
PROVIDERS: ATTEND Neurological Surgery
DX: I82.492 Acute embolism and thrombosis of other specified deep vein of left lower extremity (principal); M79.89 Other specified soft tissue disorders

== ENCOUNTER → 2023-09-01 | Outpatient (CLI) | payer MEDICARE, MEDICAID ==
[2023-09-01 11:45] LABS: BILIRUBIN Negative (Negative); BLOOD 1+ (Negative); CLARITY Cloudy (Clear); COLOR Yellow (Yellow); GLUCOSE Negative (Negative); KETONE Negative (Negative); LEUKO ESTERASE 3+ (Negative); NITRITE Negative (Negative); UROBILINOGEN 0.2 E.U./dl (0.0-1.0)
[2023-09-01 12:15] LABS: BACTERIA 3+; WBC TNTC wbc/hpf (0-5)
== END | disposition home or self-care (01) ==
LOC: LAB 11:05
PROVIDERS: ATTEND Internal Medicine
DX: N39.0 Urinary tract infection, site not specified (principal)

== ENCOUNTER → 2023-09-24 | Outpatient (CLI) | payer MEDICARE, MEDICAID ==
[2023-09-24 13:47] LABS: BILIRUBIN Negative (Negative); BLOOD Negative (Negative); CLARITY Clear (Clear); COLOR Yellow (Yellow); GLUCOSE Negative (Negative); KETONE Negative (Negative); NITRITE Negative (Negative); PH 6.5 (4.5-8.0); SPECIFIC GRAVITY 1.015 (1.001-1.030); UROBILINOGEN 0.2 E.U./dl (0.0-1.0)
[2023-09-24 14:18] LABS: BACTERIA 1+; LEUKO ESTERASE Trace (Negative)
== END | disposition home or self-care (01) ==
LOC: LAB 01:21
PROVIDERS: ATTEND Internal Medicine
DX: N39.0 Urinary tract infection, site not specified (principal)

== ENCOUNTER → 2023-10-21 | Outpatient (CLI) | payer MEDICARE, MEDICAID | END | disposition home or self-care (01) | LOC: US 10-16 00:36 | PROVIDERS: ATTEND Internal Medicine | DX: I82.409 Acute embolism and thrombosis of unspecified deep veins of unspecified lower extremity (principal); R06.02 Shortness of breath; J44.9 Chronic obstructive pulmonary disease, unspecified; Z72.0 Tobacco use; Z95.828 Presence of other vascular implants and grafts ==

== ENCOUNTER → 2023-12-03 | Outpatient (CLI) | payer MEDICARE, MEDICAID ==
[2023-12-03 12:58] LABS: BASO % 0.5 % (0.0-1.0); EOS # 0.2 10*3/uL (0.0-0.4); EOS % 2.9 % (1.0-4.0); LYMPH # 2.4 10*3/uL (1.3-4.4); LYMPH % 39.3 % (27.0-41.0); MEAN CORPUSCULAR HGB 30.5 pg (27.0-31.0); MEAN CORPUSCULAR HGB CONC 30.8 g/dl (33.0-37.0); MEAN PLATELET VOLUME 10.4 fl (9.6-12.3); MONO # 0.5 10*3/uL (0.1-1.0); MONO % 8.1 % (3.0-9.0); NEUT % 48.7 % (47.0-73.0); PLATELET COUNT AUTOMATED 296 10*3/uL (130-400); RED BLOOD COUNT 3.84 10*6/uL (4.10-5.10); RED CELL DISTRI WIDTH 16.5 % (0-14.5); WHITE BLOOD COUNT 6.2 10*3/uL (4.8-10.8)
[2023-12-03 13:10] LABS: BILIRUBIN Negative (Negative); BLOOD Negative (Negative); CLARITY Clear (Clear); COLOR Yellow (Yellow); GLUCOSE Negative (Negative); KETONE Negative (Negative); LEUKO ESTERASE 1+ (Negative); NITRITE Negative (Negative); PH 5.5 (4.5-8.0); UROBILINOGEN 0.2 E.U./dl (0.0-1.0)
[2023-12-03 13:20] LABS: ALKALINE PHOSPHATASE 105 U/L (46-116); BUN 11 mg/dl (9-23); CHLORIDE 106 mmol/L (98-107); SGPT/ALT 16 U/L (5-49); TOTAL PROTEIN 7.4 gm/dL (6.0-8.0)
== END | disposition home or self-care (01) ==
LOC: LAB 11-29 03:32 → CT 11-29 09:00 → LAB 02:39
PROVIDERS: ATTEND Urology
DX: Z01.818 Encounter for other preprocedural examination (principal); N20.0 Calculus of kidney; K57.30 Diverticulosis of large intestine without perforation or abscess without bleeding; J43.9 Emphysema, unspecified; K76.0 Fatty (change of) liver, not elsewhere classified; N32.89 Other specified disorders of bladder; D35.02 Benign neoplasm of left adrenal gland; K40.90 Unilateral inguinal hernia, without obstruction or gangrene, not specified as recurrent; I70.0 Atherosclerosis of aorta; M47.816 Spondylosis without myelopathy or radiculopathy, lumbar region; M41.86 Other forms of scoliosis, lumbar region

== ENCOUNTER → 2024-01-26 | Outpatient (CLI) | payer MEDICARE, MEDICAID | END | disposition home or self-care (01) | LOC: US 12:30 | PROVIDERS: ATTEND Nurse Practitioner | DX: M71.22 Synovial cyst of popliteal space [Baker], left knee (principal); M51.36 Other intervertebral disc degeneration, lumbar region; M48.062 Spinal stenosis, lumbar region with neurogenic claudication; M41.9 Scoliosis, unspecified; R80.9 Proteinuria, unspecified; J44.9 Chronic obstructive pulmonary disease, unspecified; R60.0 Localized edema ==

== ENCOUNTER → 2025-01-13 | Outpatient (CLI) | payer MEDICARE, MEDICAID ==
[~2025-01-13] MED LIST changes: +PRISTIQ50 MG PO; +TRAZODONE100 MG PO; +TRAZODONE150 MG PO
[2025-01-13 10:46] LABS: BILIRUBIN Negative (Negative); BLOOD Negative (Negative); CLARITY Clear (Clear); COLOR Yellow (Yellow); GLUCOSE Negative (Negative); KETONE Negative (Negative); LEUKO ESTERASE Negative (Negative); NITRITE Negative (Negative); UROBILINOGEN 0.2 E.U./dl (0.0-1.0)
[2025-01-13 12:01] LABS: BACTERIA TRACE; WBC 0-2 wbc/hpf (0-5)
== END | disposition home or self-care (01) ==
LOC: LAB 01:08
PROVIDERS: ATTEND Internal Medicine
DX: N39.0 Urinary tract infection, site not specified (principal)